=== PATIENT | female | born 1950 | race Caucasian/White ===

== ENCOUNTER 2024-06-15 06:40 | Inpatient (IN) | payer MEDICARE, OTHER ==
[~2024-06-15] VITALS: Ht 152.4 cm; Wt 77.1 kg
[2024-06-15] MEDS ORDERED: VANCOMYCIN 1 GM VIAL ONE (07:03)
[2024-06-15] MEDS ORDERED: LIDOCAINE 2%-EPI 1:100,000 30 ML VIAL ONE (07:03)
[2024-06-15] MEDS ORDERED: dexaMETHasone SOD PHOSPHATE 2 ML ONE (07:03)
[2024-06-15] MEDS ORDERED: FENTANYL PF 250MCG/5ML AMPUL ONE (07:19)
[2024-06-15] MEDS ORDERED: ROCURONIUM BROMIDE 50 MG/5 ML ONE (07:20)
[2024-06-15] MEDS ORDERED: LABETALOL HCL IV 100MG VIAL ONE (07:56)
[2024-06-15] MEDS ORDERED: ONDANSETRON HCL/PF 4 MG/2 ML VIAL IV PRN (11:00)
[2024-06-15] MEDS ORDERED: ACETAMINOPHEN 325 MG TABLET PO PRN (11:00)
[2024-06-15 12:03] VITALS: BP 113/71; TEMP 98.4; O2SAT 96
[2024-06-15] MEDS: HYDROMORPHONE 1 MG/1 ML DISP.SYRIN IV PRN (12:09)
[2024-06-15] MEDS: IV NS 0.9% 1,000 ML IV PRN (13:10)
[2024-06-15 16:24] VITALS: BP 112/71; TEMP 98.1; O2SAT 97
[2024-06-15] MEDS: INSULIN REGULAR, HUMAN 100 UNIT/ML 3 ML VIAL SQ PRN (17:56)
[2024-06-15] MEDS ORDERED: hydrALAZINE HCL IV 20 MG VIAL IV PRN (18:00)
[2024-06-15] MEDS ORDERED: DEXTROSE 50%-WATER 50 ML DISP.SYRIN IV PRN (18:00)
[2024-06-15] MEDS: VANCOMYCIN 1 GM in IV D5W 250ml IV SCH (18:31)
[2024-06-15 20:00] VITALS: BP 132/69; TEMP 97.9; O2SAT 98
[2024-06-16] MEDS: BLOOD SUGAR DIAGNOSTIC 1 EACH STRIP IN SCH (07:06)
[2024-06-16 08:00] VITALS: BP 133/69; TEMP 97.2; O2SAT 94
[2024-06-16 08:04] LABS: HEMATOCRIT 32 % (33-45); HEMOGLOBIN 10.4 g/dL (11.5-14.8); LYMPHOCYTES % (AUTO) 8.8 % (20.0-44.0); MEAN CORPUSCULAR HEMOGLOBIN 28 PG (26.0-33.0); MEAN CORPUSCULAR HGB CONC 33 g/dl (31.0-36.0); MEAN CORPUSCULAR VOLUME 84 fL (82-100); MONOCYTES # (AUTO) 0.6 K/uL (0.1-1.30); MONOCYTES % (AUTO) 5.4 % (2.0-12.0); NEUTROPHILS # (AUTO) 9.8 K/uL (1.8-8.9); NEUTROPHILS % (AUTO) 85.8 % (43.0-81.0); PLATELET COUNT (AUTO) 177 K/uL (150-450); RED BLOOD CELL COUNT(AUTO) 3.77 MIL/uL (4.0-5.2); RED CELL DISTRIBUTION WIDTH 14.3 % (11.5-15.0); WHITE BLOOD COUNT (AUTO) 11.4 K/uL (4.3-11.0)
[2024-06-16 09:19] LABS: ALBUMIN 3.2 g/dL (3.4-5.0); BILIRUBIN,TOTAL 0.3 mg/dL (0.2-1.0); CALCIUM, SERUM 8.8 mg/dL (8.5-10.1); CREATININE 1.2 mg/dL (0.6-1.3); MAGNESIUM 2.2 mg/dL (1.8-2.4); PHOSPHORUS 4.2 mg/dL (2.5-4.9); POTASSIUM 4.9 mmol/L (3.5-5.1); TOTAL PROTEIN, SERUM 6.8 g/dL (6.4-8.2)
== END 2024-06-16 13:50 | disposition home or self-care (01) | DRG 141 ==
LOC: DS 06:40 → MED 11:02
PROVIDERS: ADMIT Internal Medicine; ATTEND Nurse Practitioner Family
PROC: 0NUV07Z Supplement Left Mandible with Autologous Tissue Substitute, Open Approach (ICD-10-PCS; 2024-06-15)
PROC: 0N5V0ZZ Destruction of Left Mandible, Open Approach (ICD-10-PCS; 2024-06-15)
PROC: 0N5T0ZZ Destruction of Right Mandible, Open Approach (ICD-10-PCS; 2024-06-15)
PROC: 0N5R0ZZ Destruction of Maxilla, Open Approach (ICD-10-PCS; 2024-06-15)
PROC: 0NSV04Z Reposition Left Mandible with Internal Fixation Device, Open Approach (ICD-10-PCS; 2024-06-15)
PROC: 0NST04Z Reposition Right Mandible with Internal Fixation Device, Open Approach (ICD-10-PCS; 2024-06-15)
PROC: 0NUT07Z Supplement Right Mandible with Autologous Tissue Substitute, Open Approach (ICD-10-PCS; 2024-06-15)
PROC: 0NSR04Z Reposition Maxilla with Internal Fixation Device, Open Approach (ICD-10-PCS; principal; 2024-06-15 07:30)
DX: S02.40DA Maxillary fracture, left side, initial encounter for closed fracture (principal); M87.9 Osteonecrosis, unspecified; X58.XXXA Exposure to other specified factors, initial encounter; Y92.9 Unspecified place or not applicable; M27.2 Inflammatory conditions of jaws; E11.9 Type 2 diabetes mellitus without complications; I10 Essential (primary) hypertension; Z68.33 Body mass index [BMI] 33.0-33.9, adult; E66.9 Obesity, unspecified; M85.60 Other cyst of bone, unspecified site; E11.69 Type 2 diabetes mellitus with other specified complication; J32.9 Chronic sinusitis, unspecified
CPT/HCPCS: 36415; 80053-TC; 82962-TC; 83735-TC; 84100-TC; 85025-TC; A4223; A4338; C1713; G0378; J0690; J1100; J1171; J1815; J2704; J3010; J3370; J3490; J7030; J7060

== ENCOUNTER 2024-09-27 07:54 | Inpatient (IN) | payer MEDICARE, OTHER ==
[~2024-09-27] VITALS: Ht 152.4 cm; Wt 78.9 kg
[2024-09-27] MEDS ORDERED: FENTANYL PF 250MCG/5ML AMPUL ONE (09:27)
[2024-09-27] MEDS ORDERED: LIDOCAINE 2%-EPI 1:100,000 30 ML VIAL ONE (10:05)
[2024-09-27] MEDS ORDERED: dexaMETHasone SOD PHOSPHATE 1 ML ONE (10:05)
[2024-09-27] MEDS ORDERED: VANCOMYCIN 1 GM VIAL ONE (10:05)
[2024-09-27] MEDS ORDERED: LABETALOL HCL IV 100MG VIAL ONE (10:36)
[2024-09-27] MEDS ORDERED: HYDROMORPHONE 1 MG/1 ML DISP.SYRIN IV PRN (13:00)
[2024-09-27] MEDS ORDERED: ONDANSETRON HCL/PF 4 MG/2 ML VIAL IVP PRN (13:00)
[2024-09-27] MEDS ORDERED: LORA10TA68 PO (13:59)
[2024-09-27] MEDS ORDERED: ACET-637 PO (13:59)
[2024-09-27] MEDS ORDERED: OMEP1CAP24 PO (13:59)
[2024-09-27] MEDS ORDERED: METO25TA4 PO (13:59)
[2024-09-27 14:00] VITALS: BP 104/67; TEMP 97.5; O2SAT 97
[2024-09-27] MEDS: ACETAMINOPHEN 325 MG TABLET PO PRN (16:04)
[2024-09-27] MEDS: IV NS 0.9% 1,000 ML IV PRN (16:23)
[2024-09-27 20:00] VITALS: BP 107/57; TEMP 98.1; O2SAT 95
[2024-09-27] MEDS: VANCOMYCIN 1 GM in IV D5W 250ml IV SCH (21:20)
[2024-09-27] MEDS: TRAZODONE 50 MG TABLET PO PRN (22:28)
[2024-09-28 08:00] VITALS: BP 111/60; TEMP 98.6; O2SAT 98
== END 2024-09-28 13:34 | disposition home or self-care (01) | DRG 908 ==
LOC: DS 07:54 → MED 12:18
PROC: 0N5R0ZZ Destruction of Maxilla, Open Approach (ICD-10-PCS; 2024-09-27)
PROC: 0N5T0ZZ Destruction of Right Mandible, Open Approach (ICD-10-PCS; 2024-09-27)
PROC: 0NUR07Z Supplement Maxilla with Autologous Tissue Substitute, Open Approach (ICD-10-PCS; 2024-09-27)
PROC: 0NPW0JZ Removal of Synthetic Substitute from Facial Bone, Open Approach (ICD-10-PCS; 2024-09-27)
PROC: 0NBV0ZZ Excision of Left Mandible, Open Approach (ICD-10-PCS; 2024-09-27)
PROC: 0NSR0ZZ Reposition Maxilla, Open Approach (ICD-10-PCS; 2024-09-27)
PROC: 0CB Mouth and Throat, Excision (ICD-10-PCS; 2024-09-27)
PROC: 0NPW07Z Removal of Autologous Tissue Substitute from Facial Bone, Open Approach (ICD-10-PCS; 2024-09-27)
PROC: 0NPW04Z Removal of Internal Fixation Device from Facial Bone, Open Approach (ICD-10-PCS; principal; 2024-09-27 10:25)
DX: T86.831 Bone graft failure (principal); Q21.0 Ventricular septal defect; T84.69XA Infection and inflammatory reaction due to internal fixation device of other site, initial encounter; M27.2 Inflammatory conditions of jaws; I10 Essential (primary) hypertension; E66.9 Obesity, unspecified; Y92.009 Unspecified place in unspecified non-institutional (private) residence as the place of occurrence of the external cause; Y83.2 Surgical operation with anastomosis, bypass or graft as the cause of abnormal reaction of the patient, or of later complication, without mention of misadventure at the time of the procedure; M60.9 Myositis, unspecified; Z68.34 Body mass index [BMI] 34.0-34.9, adult; D16.5 Benign neoplasm of lower jaw bone; D16.4 Benign neoplasm of bones of skull and face; M89.38 Hypertrophy of bone, other site; K13.70 Unspecified lesions of oral mucosa; Y83.8 Other surgical procedures as the cause of abnormal reaction of the patient, or of later complication, without mention of misadventure at the time of the procedure
CPT/HCPCS: 88300-TC; 88305-TC; 88311-TC; A4223; A4338; G0378; J0461; J0690; J1100; J2704; J3010; J3370; J3490; J7030; J7060